=== PATIENT | female | born 1980 | race Two or more races ===

== ENCOUNTER 2021-02-01 02:09 | Inpatient (IN) | payer BC ==
[~2021-02-01] VITALS: Ht 167.6 cm; Wt 65.3 kg
--- NOTE | 2021-02-01 02:09 | NUR ---
Dr. Serrano at bedside for MSE.
[2021-02-01] MEDS ORDERED: LORAZEPAM 2 MG/1 ML VIAL IM ONE (02:15)
[2021-02-01] MEDS ORDERED: HALOPERIDOL LACTATE 5 MG/1 ML VIAL IM ONE (02:15)
[2021-02-01] MEDS ORDERED: LORAZEPAM 2 MG/1 ML VIAL ONE (02:17)
[2021-02-01 03:10] LABS: BASOPHILS % (AUTO) 0.2 % (0.0-2.0); EOSINOPHILS % (AUTO) 0.1 % (0.0-7.0); HEMATOCRIT 39.3 % (31.2-41.9); HEMOGLOBIN 13.3 g/dL (10.9-14.3); LYMPHOCYTES # (AUTO) 2.1 K/uL (20.0-40.0); LYMPHOCYTES % (AUTO) 14.1 % (20.5-51.5); MEAN CORPUSCULAR HEMOGLOBIN 31.2 uug (24.7-32.8); MEAN CORPUSCULAR HGB CONC 34 g/dL (32.3-35.6); MEAN CORPUSCULAR VOLUME 92.2 fL (75.5-95.3); MONOCYTES # (AUTO) 0.7 K/uL (2.0-10.0); MONOCYTES % (AUTO) 4.9 % (0.0-11.0); NEUTROPHILS # (AUTO) 11.8 K/uL (1.8-8.9); NEUTROPHILS % (AUTO) 80.7 % (38.5-71.5); PLATELET COUNT (AUTO) 297 K/uL (179-408); RED BLOOD CELL COUNT(AUTO) 4.26 MIL/uL (3.63-4.92); WHITE BLOOD COUNT (AUTO) 14.7 K/uL (3.8-11.8)
[2021-02-01 03:27] LABS: ALANINE AMINOTRANSFERASE 22 U/L (14-59); ALKALINE PHOSPHATASE 102 U/L (50-136); ASPARTATE AMINOTRANSFERASE 17 U/L (15-37); BILIRUBIN,DIRECT 0.3 mg/dL (0.0-0.2); BILIRUBIN,TOTAL 1.2 mg/dL (0.2-1.0); CARBON DIOXIDE 19 mmol/L (21-32); CHLORIDE 100 mmol/L (98-107); CREATINE KINASE, TOTAL 347 U/L (26-192); CREATININE 1.1 mg/dL (0.6-1.3); GLUCOSE 93 mg/dL (74-106); POTASSIUM 3.4 mmol/L (3.5-5.1); UREA NITROGEN, BLOOD 26 mg/dL (7-18)
[2021-02-01 03:33] LABS: THYROID STIMULATING HORMONE 3.016 mIU/mL (0.358-3.740)
[2021-02-01 03:41] LABS: ACETAMINOPHEN < 2.0 ug/mL (10-30)
[2021-02-01 03:42] LABS: ETHANOL < 3 MG/DL (0-0)
--- NOTE | 2021-02-01 05:15 | NUR ---
Francesca beltrán in [facility] - 02/01/21 at 0520 by TWAN Patient medically cleared by Dr. Serrano.
--- NOTE | 2021-02-01 05:27 | NUR ---
Xray at bedside.
[2021-02-01] MEDS ORDERED: IV NS 1000 ML 1,000 ML IV ONE (05:30)
--- NOTE | 2021-02-01 05:50 | NUR ---
Inserted edge catheter, chapperoned by Geovanna Lamb kettle skimmer, patient tolerated procedure well, urine sample collected, sent to lab.
[2021-02-01 06:01] LABS: *BLOOD, URINE NEGATIVE (NEGATIVE); *CLARITY,URINE CLEAR (CLEAR); *COLOR,URINE YELLOW (YELLOW); *KETONES,URINE 4+ (NEGATIVE); *UROBILINOGEN,URINE 0.2 E.U./dl (NORMAL); LEUKOCYTE ESTERASE ,URINE NEGATIVE (NEGATIVE); NITRITE, URINE NEGATIVE (NEGATIVE); PH,URINE 5.5 (5.0-8.0); UGLUCOSE NEGATIVE (NEGATIVE)
[2021-02-01 06:05] LABS: *BILIRUBIN,URIN 1+ (NEGATIVE)
[2021-02-01 06:13] LABS: *AMPHETAMINE, URINE NEGATIVE (NEGATIVE); *CANNABINOID, URINE NEGATIVE (NEGATIVE); *COCCAINE, URINE NEGATIVE (NEGATIVE); *OPIATE, URINE NEGATIVE (NEGATIVE); *PHENCYCLIDINE SCREEN,URINE NEGATIVE (NEGATIVE)
--- NOTE | 2021-02-01 06:18 | NUR ---
Pt sleeping bed, no acute signs of distress, still disoriented to time and place when questioned and mostly incomprehensible speech.
[2021-02-01 06:19] LABS: BACTERIA,URINE NONE SEEN /HPF (NONE SEEN); MUCUS,URINE FEW /LPF (0-FEW); SQUAMOUS EPITHELIAL CELL,UR FEW /HPF (NONE SEEN); URINE AMORPHOUS URATE FEW /HPF
--- NOTE | 2021-02-01 07:11 | NUR ---
Report given to Gal Rodríguez RN [facility].
--- NOTE | 2021-02-01 07:15 | NUR ---
waiting for MD to input order for restraints. Pt has velcro wrist restraints on from previously being combative. Assesd --> okay.
--- NOTE | 2021-02-01 08:40 | NUR ---
Pt difficult to arouse and speaks very softly, oriented to person and place, but could not hear any other answers. Seems cooperative, so released from restraints, aware. Pt being taken down for CT.
--- NOTE | 2021-02-01 10:45 | NUR ---
Called report to KENDALL Velázquez.
[2021-02-01] MEDS ORDERED: MAGNESIUM HYDROXIDE 30 ML LIQUID UDC PO PRN (11:15)
[2021-02-01] MEDS ORDERED: Z GUARD REMEDY PASTE 57 GM TUBE TOP PRN (11:15)
[2021-02-01] MEDS ORDERED: IV NS 1000 ML 1,000 ML IV PRN (11:15)
[2021-02-01] MEDS ORDERED: ONDANSETRON 4 MG/2 ML VIAL IV PRN (11:15)
--- NOTE | 2021-02-01 12:00 | NUR ---
Admitted patient to Telemetry. Patient arrived on the floor via gurney sleeping but responsive to stimuli. Patient arrived with a sitter. Per ER endorsement patient had altercation with staff and police officers this morning, was put on 5150 and given Ativan 2mg IM and Haldol 5mg IM. VS taken as follows Bp 100/57, p81, r18, t98.4 spo2 100% on room air. LAC 20g IV intact and patent. No respiratory distress noted. Patient arrived with sitter. Belongings inventoried, legal activity adjudicator and cigarettes put in contraband locker. Safety measures in place. Bed kept low and locked. Sitter at bedside. Patient kept comfortable. Call light within reach. Will continue to monitor.
[2021-02-01 12:04] VITALS: BP 100/57
[2021-02-01] MEDS: CEFTRIAXONE 1 G in IV DEXTROSE 5% 50 ML IV SCH (12:15)
--- NOTE | 2021-02-01 12:30 | NUR ---
Skin assessment done upon admission. Patient's skin intact. Will continue to monitor.
--- NOTE | 2021-02-01 15:04 | NUR ---
Patient sleeping comfortably. No facial grimacing. Breathing even and non labored. Sitter at bedside. Bed kept low and locked. Call light within reach. Will continue to monitor.
[2021-02-01 15:37] VITALS: BP 101/65
--- NOTE | 2021-02-01 17:00 | NUR ---
US tech was here but patient refused ultrasound. Per tech he will come back tomorrow. Will endorse accordingly.
--- NOTE | 2021-02-01 17:17 | NUR ---
Pt not waking and uncooperative at this time. will try again tmrw.
--- NOTE | 2021-02-01 18:55 | NUR ---
Patient in bed sleeping but arousable. No distress. Attempted to talk to the patient but resistant and covers her face. Bed kept low and locked. Sitter at bedside. Remains on iv hydration tolerated. Kept comfortable. Will continue to monitor.
--- NOTE | 2021-02-01 19:30 | NUR ---
Received pt in bed, asleep but arousable to name. Pt withdraws and covers her face when approached. On room air, no s/s of respiratory distress, denies any pain or discomfort. NSR on tele at 88/min. IV access intact and patent. Safety measures initiated, sitter at bedside. Call light within reach, will continue to monitor.
[2021-02-01] MEDS: IV NS 1000 ML 1,000 ML IV PRN (19:36)
--- NOTE | 2021-02-01 19:36 | NUR ---
Received pt with NS 700ml running at 75cc/hr. Changed rate to 100cc/hr. will continue to monitor.
[2021-02-01 20:06] VITALS: BP 121/78
[2021-02-02 00:08] VITALS: BP 100/60
[2021-02-02] MEDS: IV NS 1000 ML 1,000 ML IV PRN ×3 (02:58→23:34)
[2021-02-02 04:17] VITALS: BP 109/63
--- NOTE | 2021-02-02 04:30 | NUR ---
No urine output until now. Bladder scan done = 503 ml. Encouraged pt to urinate but pt got upset and uncooperative with care. Does not follow commands. will continue to monitor.
--- NOTE | 2021-02-02 05:38 | NUR ---
Pt slept through the night, no s/s of respiratory distress, denies any pain or discomfort. IVF infusing well. Safety measures maintained at all times. Sitter at bedside. Call light within reach, all needs attended. For US abdomen today. NPO since midnight. Will endorse to incoming nurse.
[2021-02-02 06:51] LABS: BASOPHILS # (AUTO) 0.1 K/uL (0.0-8.0); BASOPHILS % (AUTO) 0.7 % (0.0-2.0); EOSINOPHILS # (AUTO) 0.1 K/uL (0.0-0.7); HEMATOCRIT 34.1 % (31.2-41.9); HEMOGLOBIN 11.5 g/dL (10.9-14.3); LYMPHOCYTES # (AUTO) 2.1 K/uL (20.0-40.0); LYMPHOCYTES % (AUTO) 25.5 % (20.5-51.5); MEAN CORPUSCULAR HEMOGLOBIN 31.5 uug (24.7-32.8); MEAN CORPUSCULAR HGB CONC 34 g/dL (32.3-35.6); MEAN CORPUSCULAR VOLUME 93.1 fL (75.5-95.3); MONOCYTES # (AUTO) 0.6 K/uL (2.0-10.0); MONOCYTES % (AUTO) 6.8 % (0.0-11.0); NEUTROPHILS # (AUTO) 5.6 K/uL (1.8-8.9); PLATELET COUNT (AUTO) 270 K/uL (179-408); RED BLOOD CELL COUNT(AUTO) 3.66 MIL/uL (3.63-4.92); WHITE BLOOD COUNT (AUTO) 8.4 K/uL (3.8-11.8)
[2021-02-02 07:32] LABS: THYROID STIMULATING HORMONE 0.583 mIU/mL (0.358-3.740)
[2021-02-02 07:33] LABS: CREATININE 0.7 mg/dL (0.6-1.3); MAGNESIUM 1.8 mg/dL (1.8-2.4); PHOSPHOROUS 3.3 mg/dL (2.5-4.9); POTASSIUM 3.3 mmol/L (3.5-5.1)
[2021-02-02 08:00] VITALS: BP 100/69
[2021-02-02] MEDS: PANTOPRAZOLE SODIUM 40 MG VIAL IV SCH (08:13)
[2021-02-02] MEDS: ACETAMINOPHEN 325 MG TABLET PO PRN ×2 (08:34→17:15)
--- NOTE | 2021-02-02 09:37 | NUR ---
Patient in bed alert and verbally responsive. Complained of right shoulder pain . Positioned change rendered , patient still in pain 02/21. Tylenol given per MD order. Adviced patient not to eat and drink because of her schedule ultrasound of the abdomen today but patient insisted to drink. When asked if it is ok to do abdominal ultrasound, patient did not want to answer and very uncooperative upon assessment. On room air saturating at 95% Advice the patient to call me if she feels going to the bathroom for UA sample. Patient didnt answer. Sitter at bedside and will continue to monitor. Call light within reach.
--- NOTE | 2021-02-02 09:53 | NUR ---
BELKIS NOTE: SW attempted to assess patient however patient is observed with her eyes closed and refuses to engage with this ad copy writer.
--- NOTE | 2021-02-02 10:24 | NUR ---
seen and examined by Marcella Link CONTROL SYSTEMS DESIGNER. Notified her about patient not being cooperative for her ultrasound of the abdomen and not able to be cooperative to the nurse to get her urine sample. No new order. Patient remain asleep at this time . IV fluid running well.
[2021-02-02] MEDS ORDERED: POTASSIUM CHLORIDE 20 MEQ TAB.PRT.SR PO ONE (10:45)
[2021-02-02 12:00] VITALS: BP 104/71
[2021-02-02] MEDS: CEFTRIAXONE 1 G in IV DEXTROSE 5% 50 ML IV SCH (12:22)
[2021-02-02 12:50] LABS: *BILIRUBIN,URIN 1+ (NEGATIVE); *BLOOD, URINE NEGATIVE (NEGATIVE); *CLARITY,URINE SLIGHTLY CLOUDY (CLEAR); *COLOR,URINE YELLOW (YELLOW); *KETONES,URINE 3+ (NEGATIVE); *UROBILINOGEN,URINE 0.2 E.U./dl (NORMAL); LEUKOCYTE ESTERASE ,URINE NEGATIVE (NEGATIVE); NITRITE, URINE NEGATIVE (NEGATIVE); UGLUCOSE NEGATIVE (NEGATIVE)
[2021-02-02 12:57] LABS: *CREATININE,URINE 187.1 mg/dL (30-125); *URINE TOTAL PROTEIN RANDOM 69.3 mg/dL (<150/24HR)
[2021-02-02 14:20] LABS: BACTERIA,URINE FEW /HPF (NONE SEEN); MUCUS,URINE FEW /LPF (0-FEW); RBC,URINE 0-3 /HPF (0-3); SQUAMOUS EPITHELIAL CELL,UR MODERATE /HPF (NONE SEEN)
[2021-02-02 16:00] VITALS: BP 120/72
--- NOTE | 2021-02-02 17:00 | NUR ---
Patient temp is 99.9 Tylenol 650mg administered per MD order and colling measure given. Will continue to monitor.
--- NOTE | 2021-02-02 18:11 | NUR ---
Patient temp: 98.7 and comfortably sleeping. Will continue to monitor. Call light placed within reach.
[2021-02-02 19:27] VITALS: BP 104/67
--- NOTE | 2021-02-02 19:30 | NUR ---
RECEIVED PT IN NO ACUTE DISTRESS. PT WITHDRAWN. DOESN'T LIKE TO TALK. SITTER AT BEDSIDE FOR SAFETY. SAFETY AND COMFORT PROVIDED. WILL CONTINUE TO MONITOR.
[2021-02-03 05:26] VITALS: BP 121/81
[2021-02-03 06:17] LABS: BASOPHILS % (AUTO) 0.7 % (0.0-2.0); EOSINOPHILS # (AUTO) 0.1 K/uL (0.0-0.7); EOSINOPHILS % (AUTO) 1.9 % (0.0-7.0); HEMATOCRIT 30.5 % (31.2-41.9); HEMOGLOBIN 10.2 g/dL (10.9-14.3); LYMPHOCYTES # (AUTO) 2.7 K/uL (20.0-40.0); LYMPHOCYTES % (AUTO) 44.3 % (20.5-51.5); MEAN CORPUSCULAR HEMOGLOBIN 31.1 uug (24.7-32.8); MEAN CORPUSCULAR HGB CONC 33 g/dL (32.3-35.6); MEAN CORPUSCULAR VOLUME 92.9 fL (75.5-95.3); MONOCYTES # (AUTO) 0.3 K/uL (2.0-10.0); MONOCYTES % (AUTO) 5.6 % (0.0-11.0); NEUTROPHILS # (AUTO) 2.9 K/uL (1.8-8.9); NEUTROPHILS % (AUTO) 47.5 % (38.5-71.5); PLATELET COUNT (AUTO) 213 K/uL (179-408); RED BLOOD CELL COUNT(AUTO) 3.28 MIL/uL (3.63-4.92); WHITE BLOOD COUNT (AUTO) 6.1 K/uL (3.8-11.8)
--- NOTE | 2021-02-03 06:25 | NUR ---
PT IN NO ACUTE DISTRESS. PT HAD SITTER FOR SAFETY. PT VITAL SIGNS STABLE. PT REFUSES TO TALK. PT WILL JUST NOD HER HEADS IF NO OR YES. SAFETY AND COMFORT PROVIDED.ALL NEEDS ARE MET. PT IV INTACT. WILL ENDORSE TO INCOMING NURSE FOR CONTINUITY OF CARE.
[2021-02-03 06:38] LABS: CREATININE 0.6 mg/dL (0.6-1.3); MAGNESIUM 1.7 mg/dL (1.8-2.4); PHOSPHOROUS 3.4 mg/dL (2.5-4.9); POTASSIUM 2.9 mmol/L (3.5-5.1)
--- NOTE | 2021-02-03 06:46 | NUR ---
PT SLEPT 11.5 H. PT WOKE UP AND WENT TO RESTROOM TO URINATE AND WENT BACK TO SLEEP. SITTER AT BEDSIDE. WILL ENDORSE TO INCOMING NURSE.
[2021-02-03 07:22] VITALS: BP 106/65
[2021-02-03] MEDS: PANTOPRAZOLE SODIUM 40 MG VIAL IV SCH (08:01)
--- NOTE | 2021-02-03 09:39 | NUR ---
Clinical Social work Note Dr Irwin informed this designer writer that he attempted to assess this patient on 02/02/21 at around 2000 but she refused to talk to him. Patient remains on 5150 which expires tomorrow.
[2021-02-03] MEDS ORDERED: POTASSIUM CHLORIDE 20 MEQ TAB.PRT.SR PO ONE ×2 (09:45→12:00)
[2021-02-03] MEDS: MAGNESIUM SULFATE/D5W 100 ML IV SCH ×2 (09:53→10:27)
--- NOTE | 2021-02-03 09:53 | NUR ---
Dr Jean was notified re this patient now and need for psychiatric follow up.
[2021-02-03] MEDS: IV NS 1000 ML 1,000 ML IV PRN ×3 (10:01→22:16)
[2021-02-03] MEDS: CEFTRIAXONE 1 G in IV DEXTROSE 5% 50 ML IV SCH (11:26)
[2021-02-03] MEDS ORDERED: CEPH500C2 PO (11:31)
[2021-02-03 12:00] VITALS: BP 131/75
--- NOTE | 2021-02-03 13:18 | NUR ---
BELKIS NOTE: SW attempted to assess the patient today however patient presents guarded and reserved. Patient is observed with blankets covering her body and face and shook her head to any questions asked by this verse writer. SW asked patient if she is homeless and patient shook her head "yes". SW asked patient if she has any family, friends or anyone we can contact for her and she shook her head "no". Patient was uncooperative with any further questions.
[2021-02-03 17:55] VITALS: BP 125/79
[2021-02-03] MEDS ORDERED: BENZTROPINE MESYLATE 1 MG TABLET PO ONE (20:30)
[2021-02-03] MEDS ORDERED: HALOPERIDOL 5 MG TABLET PO ONE (20:30)
--- NOTE | 2021-02-03 21:05 | NUR ---
PATIENT SEEN BY DR RIVERA, AND WITH ORDER OF PATIENT 14 DAY HOLD. NOTIFY [facility] CHARGE NURSE.
--- NOTE | 2021-02-03 21:19 | NUR ---
PATIENT REFUSED MEDICATION. REORIENT PATIENT BUT NOT EFFECTIVE. CONT TO MONITOR, CONT 1;1 SITTER FOR SAFETY.
--- NOTE | 2021-02-04 05:15 | NUR ---
PATIENT SLEEP INTERMITTENTLY, STILL WITH EPISODE OF PARANOIA. PATIENT UNCOOPERATIVE WITH CARE, REFUSED MEDICATIONS. CONT TO 1;1 SITTER FOR SAFETY.
--- NOTE | 2021-02-04 06:06 | NUR ---
PATIENT ALERT AWAKE, AMBULATE TO THE TOILET WITH MINIMAL ASSIST, PATIENT SLEPT FOR 6 HRS, NO COMPLAIN OF PAIN AT THIS TIME. CONT 1;1 SITTER FOR SAFETY. CONT TO MONITOR.
[2021-02-04] MEDS ORDERED: PANTOPRAZOLE SODIUM 40 MG TABLET.DR PO SCH (07:00)
[2021-02-04 07:26] LABS: CREATININE 0.6 mg/dL (0.6-1.3); POTASSIUM 3.6 mmol/L (3.5-5.1)
[2021-02-04 07:41] VITALS: BP 144/91
[2021-02-04] MEDS: IV NS 1000 ML 1,000 ML IV PRN (08:00)
[2021-02-04] MEDS: BENZTROPINE MESYLATE 1 MG TABLET PO SCH ×3 (09:00→17:00)
[2021-02-04] MEDS: HALOPERIDOL 5 MG TABLET PO SCH ×3 (09:00→17:00)
[2021-02-04 11:30] VITALS: BP 159/100
[2021-02-04] MEDS: CEFTRIAXONE 1 G in IV DEXTROSE 5% 50 ML IV SCH (12:19)
[2021-02-04 15:48] VITALS: BP 129/78
[2021-02-04] MEDS ORDERED: CIPR-262 PO (16:48)
--- NOTE | 2021-02-04 18:27 | NUR ---
pt discharged 1820 in stable condition, all belonging given, IV line and name band removed. she ate dinner, provided with appropriate clothing for the season. list of homeless long-term and bus token card were provided. medication list, prescription drug, teaching pocket provided, refused to sign discharged paper.
== END 2021-02-04 18:24 | disposition home or self-care (01) | DRG 351 ==
LOC: ER 02:10 → TELE3 10:46 → MEDSURG3 02-02 19:40
PROVIDERS: ADMIT Registered Nurse; ATTEND Nurse Practitioner Acute Care
DX: M62.82 Rhabdomyolysis (principal); N17.0 Acute kidney failure with tubular necrosis; G93.41 Metabolic encephalopathy; E87.2 Acidosis; E87.6 Hypokalemia; E87.0 Hyperosmolality and hypernatremia; N39.0 Urinary tract infection, site not specified; D72.829 Elevated white blood cell count, unspecified; Z20.822 Contact with and (suspected) exposure to COVID-19; F29 Unspecified psychosis not due to a substance or known physiological condition; F23 Brief psychotic disorder
CPT/HCPCS: 36415; 70450; 71045; 83605; 83735; 83935; 84100; 84156; 84300; 84443; 85025; 87040; 87086; 93005; C1758; C9113; G0378; G0480; J0696; J1630; J2060; J3475; J7030; J7060